=== PATIENT | female | born 2000 | race Two or more races ===

== ENCOUNTER 2022-11-21 17:24 | Emergency (ER) | payer OTHER, SELFPAY ==
[2022-11-21 17:31] VITALS: BP 117/80; PULSE 68; RESP 18; TEMP 37.1; O2SAT 100; BMI 26.5
--- NOTE | 2022-11-21 17:40 | ED.GENADULT ---
HPI - General Adult General Chief complaint: Animal Bite Stated complaint: bit by skunk Time Seen by Provider: 11/21/22 20:32 Source: patient, RN notes reviewed and old records reviewed Mode of arrival: ambulatory Limitations: no limitations History of Present Illness HPI narrative: A 21-year-old female presents for evaluation after an animal bite. Patient reports there was a skunk in the middle of the road 4 days ago She tried to pick it up and move it out of the road so it did not get injured The skunk bit her on her right 2nd finger There was a small drop of blood She was concerned for rabies prompting her to come to the emergency department She reports that she feels well with no complaints Related Data Allergies Allergy/AdvReac Type Severity Reaction Status Date / Time No Known Allergies Allergy Verified 11/21/22 17:31 Review of Systems Integumentary/Breasts: Comments: Animal bite to right 2nd finger PMFSH Social History Social History Advance Directives: No Advance Directives Information Provided: Yes Physical Exam ED Vital Signs: Vital Signs - 24 hr 11/21/22 17:31 11/21/22 20:39 Temperature 98.7 F 98.6 F Pulse Rate 68 98 Respiratory Rate 18 16 Blood Pressure 117/80 136/81 Pulse Oximetry 100 100 Oxygen Delivery Method Room Air Room Air BMI result Body Mass Index 26.5 Extrem Other: Patient has a tiny pinpoint puncture wound to the dorsal surface of the right finger just proximal to the nail bed Course Course Course Narrative: This is an RME: Additional HPI, ROS, PE not included below will be deferred to primary provider. 21-year-old female presents with bite to right pointer finger, patient got bit by a Baby skunk 3 days ago. Denies any medical complaints at this time. Patient is not up-to-date on a tetanus shot. Medications Administered Discontinued Medications Generic Name Dose Route Start Last Admin Trade Name Freq PRN Reason Stop Dose Admin Diphtheria/Tetanus/Acell Pertussis 0.5 ml 11/21/22 17:43 11/21/22 19:10 Diphth,Pertus(Acell),Tet Adult 0.5 Ml Syringe IM 11/21/22 17:44 0.5 ml .ONCE ONE Administration Medical Decision Making Medical Decision Making MDM Narrative: Patient was exposed to a wild animal bite. There is no way to determine if the animal had rabies, but scans are known to carry rabies. The patient was offered treatment and discussed risks and benefits. She elected to undergo treatment. IM given the small treatment area to the right index finger tip Differential Diagnosis Differential Diagnoses: The differential diagnosis associated with the presentation includes Animal bite Rabies exposure Puncture wound rabies Discharge Plan Discharge Clinical Impression: Bite by animal Patient Disposition: Home, Self-Care Instructions: Rabies Vaccine (By injection), Rabies Immune Globulin (By injection), Rabies (ED) Additional Instructions: We cannot tell definitively if your exposed to rabies or not unless you captured the animal that bit you And therefore vaccine and rabies immunoglobulin This was given today You need to return in 3 days, 7 days and 14 days from today Therefore November 24 of November 28, and December 05 to get 1 injection each to complete the rabies series Return for new or worsening symptoms
[2022-11-21] MEDS: Diphth,Pertus(ACell),Tet Adult 0.5 ML SYRINGE IM (19:10)
[2022-11-21 20:39] VITALS: BP 136/81; PULSE 98; RESP 16; TEMP 37; O2SAT 100
[2022-11-21] MEDS: Rabies Vaccine, Human Diploid (Imovax) 1 ML VIAL IM (20:42)
[2022-11-21] MEDS: Rabies Immune Globulin/PF 900 UNIT/3 ML VIAL 1678.3 UNIT IM (20:53)
== END 2022-11-21 21:02 | disposition home or self-care (01) ==
PROVIDERS: Emergency Provider Internal Medicine
DX: S61.250A Open bite of right index finger without damage to nail, initial encounter (principal); W55.81XA Bitten by other mammals, initial encounter; Y93.89 Activity, other specified; Y92.414 Local residential or business street as the place of occurrence of the external cause; Y99.9 Unspecified external cause status; Z20.3 Contact with and (suspected) exposure to rabies
CPT/HCPCS: 90375; 90471; 90472; 90675; 90715; 96372; 99282; 99284

== ENCOUNTER 2022-11-24 14:26 | Outpatient (REF) | payer OTHER, SELFPAY | END 2022-11-24 14:27 | disposition home or self-care (01) | LOC: HO.MDS 14:26 | PROVIDERS: Visit Provider Internal Medicine | DX: Z20.3 Contact with and (suspected) exposure to rabies (principal); T14.8XXD Other injury of unspecified body region, subsequent encounter; W64.XXXD Exposure to other animate mechanical forces, subsequent encounter | CPT/HCPCS: 90471; 90675 ==

== ENCOUNTER 2022-11-28 15:28 | Outpatient (REF) | payer OTHER, SELFPAY | END 2022-11-28 15:29 | disposition home or self-care (01) | LOC: HO.MDS 15:28 | PROVIDERS: Visit Provider Internal Medicine | DX: Z20.3 Contact with and (suspected) exposure to rabies (principal); T14.8XXD Other injury of unspecified body region, subsequent encounter; W64.XXXD Exposure to other animate mechanical forces, subsequent encounter | CPT/HCPCS: 90471; 90675 ==

== ENCOUNTER 2022-12-07 15:51 | Outpatient (REF) | payer OTHER, SELFPAY | END 2022-12-07 15:52 | disposition home or self-care (01) | LOC: HO.MDS 15:51 | PROVIDERS: Visit Provider Internal Medicine | DX: Z20.3 Contact with and (suspected) exposure to rabies (principal); S61.250D Open bite of right index finger without damage to nail, subsequent encounter; W64.XXXD Exposure to other animate mechanical forces, subsequent encounter | CPT/HCPCS: 90471; 90675 ==